=== PATIENT | male | born 1970 | race Hispanic/Latino ===

== ENCOUNTER 2020-01-01 14:17 | Emergency (ER) | payer OTHER ==
--- OUTSIDE RECORDS SUMMARY | 2020-01-01 14:19 | XMS REPORT | Clinical Summary ---
:1970 Author Organization [facility] Address [address] [place] [address] Care Team Providers Name Role Phone Asked, No Pcp Primary Care Provider Unavailable Allergies No Known Allergies Medications Medication Sig Dispensed Refills Start Date End Date Status ibuprofen Take 400 mg by 0 Activ e (ADVIL,MOTRIN) 400 MG mouth every 6 tablet (six) hours as needed for mild pain. Active Problems Not on file Social History Tobacco Use Types Packs/Day Years Used Date Never Smoker Smokeless Tobacco: Never Used Sex Assigned at Date Recorded Not on file Job Start Date Occupation Industry Not on file Not on file Not on file Travel History Travel Start Travel End No recent travel history available. 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
[2020-01-01] MEDS ORDERED: TETANUS & DIPHTHERIA TOX,ADULT 0.5 ML VIAL ONE (17:52)
--- NOTE | 2020-01-01 18:04 | RAD REPORT ---
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 There is no dislocation or periosteal reaction noted. No acute bone or joint finding seen. Patient has innumerable dense foreign bodies up to 2 mm in maximum dimension in the superficial soft tissues of the ventral and the radial side. . IMPRESSION: Innumerable radiopaque foreign bodies up to 2 mm in size in the soft tissues of the vent ral and radial side of the wrist. No acute bone or joint finding.
[2020-01-01 22:00] LABS: Absolute Lymphocytes (CBC) 1.7 K/uL (0.7-4.9); Basophils % 0.4 % (0-1.3); Lymphocytes % 25.5 % (15.3-44.8); RBC Red Blood Cell Count 4.88 M/uL (4.33-5.43)
[2020-01-01 22:18] LABS: Potassium 3.5 mmol/L (3.5-5.1)
[2020-01-01] MEDS ORDERED: LIDOCAINE VISCOUS 2% SOLN 15 ML UDC ONE (22:19)
[2020-01-01] MEDS ORDERED: MORPHINE 4 MG/ML SYR ONE (22:36)
[2020-01-01] MEDS ORDERED: ONDANSETRON 4 MG/2 ML VIAL ONE (22:37)
[2020-01-01] MEDS ORDERED: NA CHLORIDE 0.9% 100 ML IV ONE (22:37)
[2020-01-01] MEDS ORDERED: AMPICILLIN/SULBACTAM 3GM/VIAL ONE (22:37)
[2020-01-01] MEDS ORDERED: KETOROLAC 30 MG/ML INJ ONE (22:45)
--- NOTE | 2020-01-01 23:28 | ER ---
Nurse's Notes [facility] Name: Steve Johns Age: 49 yrs Sex: Male : 1970 Arrival Date: 01/01/2020 Time: 14:21 Bed 24 Private MD: Diagnosis: Pressure injury to the right hand and wrist Presentation: 12/31 14:51 Chief complaint: Patient states: Abrasions on R wrist today at 1130. Coronavirus ca1 screen: Client denies travel out of the [place] in the last 14 days. At this time, the client does not indicate any symptoms associated with coronavirus-19. Ebola Screen: Patient negative for fever greater than or equal to 101.5 degrees Fahrenheit, and additional compatible Ebola Virus Disease symptoms Patient denies exposure to infectious person. Patient denies travel to an Ebola-affected area in the 21 days before illness onset. No symptoms or risks identified at this time. Initial Sepsis Screen: Does the patient meet any 2 criteria? No. Patient's initial sepsis screen is negative. Does the patient have a suspected source of infection? No. Patient's initial sepsis screen is negative. Risk Assessment: Do you want to hurt yourself or someone else? Patient reports no desire to harm self or others. Onset of symptoms was January 01, 2020. 14:51 Method Of Arrival: Ambulatory ca1 14:51 Acuity: CONSTANZA 4 ca1 17:03 Acuity: CONSTANZA 3 iw Triage Assessment: 21:12 General: Appears in no apparent distress. comfortable, Behavior is calm, cooperative. ls4 Injury Description: Abrasion sustained to dorsal aspect of right forearm. Historical: - Allergies: 14:53 No Known Allergies; ca1 - Home Meds: 14:53 None [Active]; ca1 - PMHx: 14:53 None; ca1 - PSHx: 14:53 None; ca1 - Immunization history:: Adult Immunizations up to date, Last tetanus immunization: unknown. - Social history:: Smoking status: Patient denies any tobacco usage or history of. Screenin:02 Fall Risk None identified. ls4 21:10 Abuse screen: Denies threats or abuse. Denies injuries from another. Nutritional ls4 screening: No deficits noted. Tuberculosis screening: No symptoms or risk factors identified. Assessment: 21:07 Pain: Complains of pain in dorsal aspect of right forearm Pain currently is 7 out of 10 ls4 on a pain scale. Derm: Wound noted dorsal aspect of right forearm Wound is dark abrasion like wound, appears like dark sand. Musculoskeletal: Circulation, motion, and sensation intact. Capillary refill < 3 seconds, Range of motion: intact in all extremities. 23:45 Reassessment: txfr center has called to verify a cancelled txfr at this time. sg Vital Signs: 14:51 BP 144 / 95; Pulse 70; Resp 16 S; Temp 97.9(TE); Pulse Ox 100% on R/A; Weight 97.52 kg ca1 (R); Height 5 ft. 10 in. (177.80 cm) (R); 23:24 BP 138 / 74; Pulse 69; Resp 14; Pulse Ox 100% on R/A; Pain 3/10; ls4 23:30 BP 132 / 70; Pulse 68; Resp 14; Pulse Ox 99% on R/A; Pain 3/10; ls4 14:51 Body Mass Index 30.85 (97.52 kg, 177.80 cm) ca1 ED Course: 14:21 Patient arrived in ED. as 14:52 Triage completed. ca1 14:53 Arm band placed on right wrist. ca1 17:02 Grant Hatfield PA is PHCP. jmm 17:02 Dennis Avila MD is Attending Physician. jmm 17:02 No apparent distress. ls4 17:02 Patient has correct armband on for positive identification. Bed in low position. Call ls4 light in reach. Side rails up X 1. awake overnight monitor on. Pulse ox on. NIBP on. Warm blanket given. Verbal reassurance given. Diet: Patient is NPO. 17:02 No provider procedures requiring assistance completed. Inserted saline lock: 18 gauge ls4 in left antecubital area, using aseptic technique. Patient maintains SpO2 saturation greater than 95% on room air. 17:21 Gloria Ramirez, RICH is Primary Nurse. ls4 17:55 Wrist Right 3 View XRAY In Process Unspecified. EDMS 19:41 Initiated transfer at [facility] and spoke with Nanette. tt3 23:01 Orthoglass splint: Volar splint applied on right arm. dh4 23:26 IV discontinued, intact, bleeding controlled, No redness/swelling at site. Pressure ls4 dressing applied. 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 Exp: ls4 06/12/2022. Lot #: [id number]. } Route: IM; Site: left deltoid; 23:24 Follow up: BP 138 / 74; Pulse 69 bpm; Resp 14 bpm; Pulse Ox 100% RA; Pain 3/10 Adult ls4 22:10 Drug: Unasyn 3 grams Route: IVPB; Infused Over: 30 mins; Site: right antecubital; ls4 22:40 Follow up: Response: No adverse reaction; Marked relief of symptoms; IV Status: ls4 Completed infusion Outcome: 23:26 Discharged to home ambulatory. ls4 23:26 Condition: good 23:26 Discharge instructions given to patient, Instructed on discharge instructions, follow up and referral plans. safe sex practices, safety practices, Demonstrated understanding of instructions, follow-up care, medications, Prescriptions given X 1. 23:27 Discharge ordered by . jerrell 23:46 Patient left the ED. sg Signatures: Dispatcher [employer] EDMS Ilan Hammonds RN RN sg Mickail, Joel, PA PA Chelsey Dill Irene, RN RN iw Stewart, Lisa, RN RN ls4 Shonda Amaya RN RN ca1 Huhn, Donald 4 Sekou Brian3
--- NOTE | 2020-01-01 23:28 | EDPHYS ---
Physician Documentation [facility] Name: Steve Johns Age: 49 yrs Sex: Male : 1970 Arrival Date: 01/01/2020 Time: 14:21 Bed 24 Private MD: ED Physician Dennis Avila HPI: 12/31 17:18 This 49 yrs old Male presents to ER via Ambulatory with complaints of Hand jmm Injury. 17:18 The patient or guardian reports injury, pain. Onset: The symptoms/episode jmm began/occurred acutely, just prior to arrival. Modifying factors: The symptoms are alleviated by nothing, the symptoms are aggravated by nothing. Associated signs and symptoms: Pertinent negatives: cyanosis distally, decreased sensation distally, fever, numbness distally, tingling distally, vomiting. This is a 49 year old male with no chronic medical conditions that presents to the ED with complaints of right hand and wrist pain after accidently hitting himself with sand from a sandblaster. Patient states the sandblaster was approx 1 foot away from his arm. Denies other injury. . Historical: - Allergies: 14:53 No Known Allergies; ca1 - Home Meds: 14:53 None [Active]; ca1 - PMHx: 14:53 None; ca1 - PSHx: 14:53 None; ca1 - Immunization history:: Adult Immunizations up to date, Last tetanus immunization: unknown. - Social history:: Smoking status: Patient denies any tobacco usage or history of. ROS: 17:18 Constitutional: Negative for fever, chills, and weight loss, Cardiovascular: Negative jmm for chest pain, palpitations, and edema, Respiratory: Negative for shortness of breath, cough, wheezing, and pleuritic chest pain. Exam: 17:18 Constitutional: This is a well developed, well nourished patient who is awake, alert, jmm and in no acute distress. Head/Face: atraumatic. Eyes: EOMI, no conjunctival erythema appreciated ENT: Moist Mucus Membranes Neck: Trachea midline, Supple Chest/axilla: Normal chest wall appearance and motion. Cardiovascular: Regular rate and rhythm. No edema appreciated Respiratory: Normal respirations, no respiratory distress appreciated Abdomen/GI: Non distended, soft Back: Normal ROM 17:18 Musculoskeletal/extremity: FROM appreciated to the right hand, right wrist, full guest request runner [facility] strength, compartments are soft, < 2 sec distal cap refill. NVI. 17:18 Skin: abrasions with gravel noted to the right volar region of the radial side of the wrist and hyperthenar region of the palm. 17:18 Neuro: Orientation: is normal, Mentation: is normal, Memory: is normal. 17:18 Psych: Behavior/mood is pleasant, cooperative. Vital Signs: 14:51 BP 144 / 95; Pulse 70; Resp 16 S; Temp 97.9(TE); Pulse Ox 100% on R/A; Weight 97.52 kg ca1 (R); Height 5 ft. 10 in. (177.80 cm) (R); 23:24 BP 138 / 74; Pulse 69; Resp 14; Pulse Ox 100% on R/A; Pain 3/10; ls4 23:30 BP 132 / 70; Pulse 68; Resp 14; Pulse Ox 99% on R/A; Pain 3/10; ls4 14:51 Body Mass Index 30.85 (97.52 kg, 177.80 cm) ca1 MDM: 17:18 Patient medically screened. [facility] 23:20 Data reviewed: vital signs, nurses notes. Counseling: I had a detailed discussion with [facility] the patient and/or guardian regarding: the historical points, exam findings, and any diagnostic results supporting the discharge/admit diagnosis, lab results, radiology results, the need for outpatient follow up, to return to the emergency department if symptoms worsen or persist or if there are any questions or concerns that arise at home. ED course: Dr. Del Angel discussed the patient with Hand Surgery at [facility]. Advised to clean the wound, splint the patient with a volar splint and return to the ED for reevaluation tomorrow. I discussed this with the patient along with the option to transfer for further evaluation by Hand. patient declined this and was made aware of the strong possibility of infection. Patient administered IV abx and will be sent home with oral abx. 12/31 20:55 Order name: CBC with Diff; Complete Time: 22:24 [facility] 12/31 20:55 Order name: BMP; Complete Time: 22:24 [facility] 12/31 17:20 Order name: Wrist Right 3 View XRAY; Complete Time: 18:08 [facility] 12/31 20:55 Order name: Saline Lock; Complete Time: 22:20 [facility] Administered Medications: 17:39 Drug: Tetanus-Diphtheria Toxoid Adult 0.5 ml {Human Resources Hr Representative: [email or web address]. Exp: ls4 06/12/2022. Lot #: [id number]. } Route: IM; Site: left deltoid; 23:24 Follow up: BP 138 / 74; Pulse 69 bpm; Resp 14 bpm; Pulse Ox 100% RA; Pain 06/30 Adult ls4 22:10 Drug: Unasyn 3 grams Route: IVPB; Infused Over: 30 mins; Site: right antecubital; ls4 22:40 Follow up: Response: No adverse reaction; Marked relief of symptoms; IV Status: ls4 Completed infusion Disposition: 01/01/20 23:27 Discharged to Home. Impression: Pressure injury to the right hand and wrist. - Condition is Stable. - Discharge Instructions: Abrasion, [id number]. - Prescriptions for Cephalexin 500 mg Oral Capsule - take 1 capsule by ORAL route every 6 hours for 10 days; 40 capsule. Bactrim DS 800- 160 mg Oral Tablet - take 1 tablet by ORAL route every 12 hours for 10 days; 20 tablet. - Medication Reconciliation Form, Thank You Letter, Antibiotic Education, Prescription Opioid Use, Work release form form. - Follow up: Emergency Department; When: Tomorrow; Reason: Recheck today's complaints, Continuance of care, Re-evaluation by your physician. - Notes: Please return to the Emergency Department tomorrow for reevaluation. Return earlier if you notice increased swelling, pain, fever, or any other concerning symptoms. Addendum: 01/03/2020 19:29 Co-signature as Attending Physician, Dennis Avila MD. r n Signatures: Dispatcher [employer] EDMS Ilan Hammonds RN RN sg Mickail, Joel, PA PA Dennis Copeland MD MD rn Stewart, Lisa, RN RN ls4 Shonda Amaya RN RN ca1 Corrections: (The following items were deleted from the chart) 12/31 23:46 23:27 01/01/2020 23:27 Discharged to Home. Impression: Pressure injury to the right sg hand and wrist. Condition is Stable. Forms are Medication Reconciliation Form, Thank You Letter, Antibiotic Education, Prescription Opioid Use. Follow up: Emergency Department; When: Tomorrow; Reason: Recheck today's complaints, Continuance of care, Re-evaluation by your physician. jerrell
[2020-01-02 02:05] VITALS: TEMP 97.9; O2SAT 100
[2020-01-02 02:06] VITALS: BP 138/74
== END 2020-01-01 23:46 | disposition home or self-care (01) ==
LOC: ER 14:17
DX: S69.91XA Unspecified injury of right wrist, hand and finger(s), initial encounter (principal); W31.89XA Contact with other specified machinery, initial encounter; Y93.9 Activity, unspecified; Y92.9 Unspecified place or not applicable; Z23 Encounter for immunization
CPT/HCPCS: 36415; 80048; 85025; 90471; 90714; 96365; 99285; J0295; J2405

== ENCOUNTER 2020-01-02 07:47 | Emergency (ER) | payer OTHER ==
--- OUTSIDE RECORDS SUMMARY | 2020-01-02 07:50 | XMS REPORT | Clinical Summary ---
:[address] 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
--- NOTE | 2020-01-02 09:49 | ER ---
Nurse's Notes [facility] Name: Steve Johns Age: 49 yrs Sex: Male : 1970 Arrival Date: 01/02/2020 Time: 07:48 Bed 3 Private MD: Diagnosis: Abrasion of right hand-SAND BLAST INJURY Presentation: 01/01 08:03 Chief complaint: Patient states: Seen in ER yesterday and told to come back to ED today ss because there was not a doctor professional athlete to clean out his wound. Has not filled antibiotic prescriptions as of yet. PT states the injury occurred while sandblasting. Coronavirus screen: Client denies travel out of the [place] in the last 14 days. Ebola Screen: Patient denies exposure to infectious person. Patient denies travel to an Ebola-affected area in the 21 days before illness onset. Initial Sepsis Screen: Does the patient meet any 2 criteria? No. Patient's initial sepsis screen is negative. Does the patient have a suspected source of infection? No. Patient's initial sepsis screen is negative. Risk Assessment: Do you want to hurt yourself or someone else? Patient reports no desire to harm self or others. Onset of symptoms was January 01, 2020. 08:03 Method Of Arrival: Ambulatory ss 08:03 Acuity: CONSTANZA 3 ss Historical: - Allergies: 08:06 No Known Allergies; ss - Home Meds: 08:06 None [Active]; ss - PMHx: 08:06 None; ss - PSHx: 08:06 None; ss - Immunization history:: Adult Immunizations up to date. - Social history:: Smoking status: Patient denies any tobacco usage or history of. Patient/guardian denies using alcohol, street drugs, The patient lives with family. - Family history:: not pertinent. Screenin:45 Abuse screen: Denies threats or abuse. Nutritional screening: No deficits noted. em Tuberculosis screening: No symptoms or risk factors identified. Fall Risk None identified. Assessment: 08:45 General: Appears in no apparent distress. comfortable, Behavior is calm, cooperative, em appropriate for age, Reports sand blasting and told to come back to the ER for re eval. Denies fever. Pain: Complains of pain in right wrist Pain currently is 2 out of 10 on a pain scale. Neuro: Level of Consciousness is awake, alert, obeys commands, Oriented to person, place, time, situation, Appropriate for age. Cardiovascular: Capillary refill < 3 seconds Patient's skin is warm and dry. Respiratory: Airway is patent Respiratory effort is even, unlabored, Respiratory pattern is regular. Derm: Skin is intact, Skin is pink, warm \T\ dry. Wound noted right wrist Wound is pt was sand blasting. Musculoskeletal: Capillary refill < 3 seconds, Range of motion: intact in all extremities. 10:00 Reassessment: Patient appears in no apparent distress at this time. Patient and/or em family updated on plan of care and expected duration. Pain level reassessed. Patient is alert, oriented x 3, equal unlabored respirations, skin warm/dry/pink. Vital Signs: 08:03 BP 142 / 80; Pulse 59; Resp 16; Temp 97.7(TE); Pulse Ox 99% on R/A; Pain 2/10; ss ED Course: 07:48 Patient arrived in ED. ds1 08:06 Triage completed. ss 08:06 Arm band placed on left wrist. ss 08:24 Khushboo Rhodes MD is Attending Physician. ma2 08:28 Jose Luis Sherwood RN is Primary Nurse. em 08:45 Patient has correct armband on for positive identification. Bed in low position. Call em light in reach. 09:50 Steven Farrar MD is Referral Physician. ma2 10:00 Wound care: to abrasion, located on right wrist was cleaned with soap and water, em dressed with Neosporin, cling, Vaseline gauze, Patient tolerated well. 10:10 No provider procedures requiring assistance completed. Patient did not have IV access em during this emergency room visit. Administered Medications: No medications were administered Outcome: 09:48 Discharge ordered by . ma2 10:10 Discharged to home ambulatory. em 10:10 Condition: good 10:10 Discharge instructions given to patient, Instructed on discharge instructions, follow up and referral plans. medication usage, wound care, Demonstrated understanding of instructions, follow-up care, medications, wound care, Prescriptions given X 1. 10:11 Patient left the ED. em Signatures: Jose Luis Sherwood RN RN em Sanford, Demi ds1 Kate Mcknight RN RN Alzahri, Mohammad, MD MD ma2
--- NOTE | 2020-01-02 09:49 | EDPHYS ---
Physician Documentation [facility] Name: Steve Johns Age: 49 yrs Sex: Male : 1970 Arrival Date: 01/02/2020 Time: 07:48 Bed 3 Private MD: ED Physician Khushboo Rhodes HPI: 01/01 09:26 This 49 yrs old Male presents to ER via Ambulatory with complaints of Arm Pain.ma2 09:26 This 49 yrs old Male presents to ER via Ambulatory with complaints of wound ma2 recheck. 09:26 The patient or guardian complains of an abrasion. The complaints affect the right ma2 wrist. Associated signs and symptoms: Pertinent negatives: erythema, fever. Severity of symptoms: At their worst the symptoms were mild, in the emergency department the symptoms have improved. patient is here for wound recheck and general re-evaluation. he was seen yesterday for a blast injury and was sent home after tdap, iv abx and volar splint and dressing.. he was advised to return to er for wound recheck as he does not have a pcp.. patient states that his pain is resolved and has no compliant from the hand.. . Historical: - Allergies: 08:06 No Known Allergies; ss - Home Meds: 08:06 None [Active]; ss - PMHx: 08:06 None; ss - PSHx: 08:06 None; ss - Immunization history:: Adult Immunizations up to date. - Social history:: Smoking status: Patient denies any tobacco usage or history of. Patient/guardian denies using alcohol, street drugs, The patient lives with family. - Family history:: not pertinent. ROS: 09:26 Constitutional: Negative for fever, chills, and weight loss. ma2 09:26 All other systems are negative. Exam: 09:26 Constitutional: This is a well developed, well nourished patient who is awake, alert, ma2 and in no acute distress. Head/Face: Normocephalic, atraumatic. Chest/axilla: Normal chest wall appearance and motion. Nontender with no deformity. No lesions are appreciated. Cardiovascular: Regular rate and rhythm with a normal S1 and S2. No gallops, murmurs, or rubs. Normal PMI, no JVD. No pulse deficits. Skin: Warm, dry with normal turgor. Normal color with no rashes, no lesions, and no evidence of cellulitis. MS/ Extremity: slint is removed his wound has granulation tissue, red base, clean and dry, no induration, no swelling or sign of cellulitis, or abscess. Pulses equal, no cyanosis. Neurovascular intact. Full, normal range of motion. all hand movements are intact. Neuro: Awake and alert, GCS 15, oriented to person, place, time, and situation. Cranial nerves II-XII grossly intact. Motor strength 5/5 in all extremities. Sensory grossly intact. Cerebellar exam normal. Normal gait. Psych: Awake, alert, with orientation to person, place and time. Behavior, mood, and affect are within normal limits. Vital Signs: 08:03 BP 142 / 80; Pulse 59; Resp 16; Temp 97.7(TE); Pulse Ox 99% on R/A; Pain 2/10; ss MDM: 08:24 Patient medically screened. ma2 09:26 Differential diagnosis: contusion, abrasion. Data reviewed: vital signs, nurses notes. ma2 Counseling: I had a detailed discussion with the patient and/or guardian regarding: the historical points, exam findings, and any diagnostic results supporting the discharge/admit diagnosis, the presence of at least one elevated blood pressure reading (>120/80) during this emergency department visit, the need for outpatient follow up. Response to treatment: the patient's symptoms have markedly improved after treatment. 09:37 ED course: discussed with dr. tadeo he is at bedside write now. . ma2 09:46 ED course: dr. tadeo recommends a clinic on Sunday, and continue same car e. ma2 Administered Medications: No medications were administered Disposition: 01/02/20 09:48 Discharged to Home. Impression: Abrasion of right hand - SAND BLAST INJURY. - Condition is Stable. - Discharge Instructions: Wound Check. - Prescriptions for Silvadene 1 % Topical Cream - Apply to affected area 1 application by TOPICAL route every 12 hours; 20 gram. - Work release form, Medication Reconciliation Form, Thank You Letter, Antibiotic Education, Prescription Opioid Use form. - Follow up: Steven Farrar MD; When: Tomorrow; Reason: Continuance of care. Signatures: Jose Luis Sherwood RN RICH em Kate Mcknight RN RN Khushboo Rhodes MD MD ma2 Corrections: (The following items were deleted from the chart) 09:50 09:48 01/02/2020 09:48 Discharged to Home. Impression: Abrasion of right hand - SAND ma2 BLAST INJURY. Condition is Stable. Forms are Work release form, Medication Reconciliation Form, Thank You Letter, Antibiotic Education, Prescription Opioid Use. Follow up: Private Physician; When: Tomorrow; Reason: Continuance of care. ma2 10:11 09:50 01/02/2020 09:48 Discharged to Home. Impression: Abrasion of right hand - SAND em BLAST INJURY. Condition is Stable. Discharge Instructions: Wound Check. Prescriptions for Silvadene 1 % Topical Cream - Apply to affected area 1 application by TOPICAL route every 12 hours; 20 gram. and Forms are Work release form, Medication Reconciliation Form, Thank You Letter, Antibiotic Education, Prescription Opioid Use. Follow up: Steven Farrar; When: Tomorrow; Reason: Continuance of care. ma2
[2020-01-02 10:31] VITALS: BP 142/80; TEMP 97.7; O2SAT 99
--- NOTE | 2020-01-02 10:53 | CON ---
History Of Present Illness: The patient is a 49-year-old male right- hand dominant who a laceration of the right radial forearm wrist area. He presented to the ER. He has no medical problems. No surgery. Social History: Does not smoke. Does not drink. Allergies: NO MEDICINE ALLERGIES. Physical Examination: Vital Signs: On examination, he is approximately about 5cm laceration. No signs of infection. No sensory loss. Assessment And Plan: He was given option to surgery today or come back on Sunday. he chose to come back on Sunday, probably surgery on Sunday. HAKEEM/MARILU Voice ID: [id number] Report ID: [id number] MIGUELINA
== END 2020-01-02 10:11 | disposition home or self-care (01) ==
LOC: ER 07:47
DX: S60.511D Abrasion of right hand, subsequent encounter (principal); X58.XXXD Exposure to other specified factors, subsequent encounter
CPT/HCPCS: 99283